=== PATIENT | female | born 1950 | race Caucasian/White ===

== ENCOUNTER 2017-01-08 09:56 | Emergency (ER) | payer MEDICARE, BC ==
[2017-01-08 10:53] VITALS: BP 126/72
--- NOTE | 2017-01-08 11:05 | UC ---
Throat Pain/Nasal [place] HPI - HPI Summary HPI Summary: 66 YEAR OLD FEMALE PRESENTS WITH COMPLAINS SORE THROAT AND CHEST CONGESTION. - History of Current Complaint Chief Complaint: UCRespiratory Stated Complaint: SORE THROAT CONGESTION Time Seen by Provider: 01/08/17 11:05 Hx Obtained From: Patient Hx Last Menstrual Period: n/a Onset/Duration: Lasting Weeks Severity: Moderate - Allergies/Home Medications Allergies/Adverse Reactions: Allergies Allergy/AdvReac Type Severity Reaction Status Date / Time environmental Allergy Congestion Uncoded 01/08/17 10:52 Home Medications: Home Medications Calcium 1,200 mg PO DAILY 01/08/17 [History Confirmed 01/08/17] Cholecalciferol [Vitamin D] 3,600 unit PO DAILY 01/08/17 [History Confirmed ] Cyclosporine 0.05% OPHTH (NF) [Restasis 0.05% OPHTH] 1 drop BOTH EYES BID [History Confirmed 01/08/17] PMH/Surg Hx/FS Hx/Imm Hx Previously Healthy: Yes - Surgical History Surgical History: Yes Surgery Procedure, Year, and Place: PARTIAL THYROIDECTOMY, HERNIA REPAIR. T&A, right breast bx, lumpectomy x2 - Family History Known Family History: Positive: Cardiac Disease, Hypertension - Social History Alcohol Use: None Substance Use Type: None Smoking Status (MU): Former Smoker Type: Cigarettes Amount Used/How Often: 1/2 PPD Length of Time of Smoking/Using Tobacco: 33 Years Have You Smoked in the Last Year: No When Did the Patient Quit Smoking/Using Tobacco: 2008 - Immunization History Most Recent Influenza Vaccination: yes 11/2016 Review of Systems Constitutional: Negative Skin: Negative Eyes: Negative ENT: Sore Throat, Nasal Discharge, Sinus Congestion, Sinus Pain/Tenderness Respiratory: Negative Cardiovascular: Negative Gastrointestinal: Negative Genitourinary: Negative Motor: Negative Neurovascular: Negative Musculoskeletal: Negative Neurological: Negative Psychological: Negative All Other Systems Reviewed And Are Negative: Yes Physical Exam Triage Information Reviewed: Yes Vital Signs: Initial Vital Signs Temp 36.7 C 01/08/17 10:47 Pulse 88 01/08/17 10:47 Resp 16 01/08/17 10:47 BP 126/72 01/08/17 10:47 Pulse Ox 99 01/08/17 10:47 Vital Signs Reviewed: Yes Eye Exam: Normal ENT: Positive: Pharyngeal erythema, Nasal congestion, Nasal drainage, Sinus tenderness Dental Exam: Normal Neck exam: Normal Neck: Positive: 1 Respiratory Exam: Normal Cardiovascular Exam: Normal Abdominal Exam: Normal Musculoskeletal Exam: Normal Neurological Exam: Normal Psychological Exam: Normal Skin Exam: Normal Throat Pain/Nasal Course/Dx - Differential Dx/Diagnosis Provider Diagnoses: SINUS CONGESTION. PHARYNGITITS. POST NASAL DRIP Discharge - Discharge Plan Condition: Stable Disposition: HOME Prescriptions: Amoxicillin/Clavulanate TAB* [Augmentin TAB 875*] 875 mg PO BID #20 tab Benzonatate [TESSALON 200 MG CAP] 200 mg PO TID PRN #30 cap PRN Reason: Cough Guaifenesin-Codeine [Cheratussin AC] 1 teasp PO BEDTIME PRN #120 ml MDD 5 ml PRN Reason: Cough LoraTADine TAB(NF) [Claritin 10 MG TAB(NF)] 10 mg PO DAILY #30 tab Patient Education Materials: Pharyngitis (ED) Referrals: Heavenly Martin MD [Primary Care Provider] -
== END 2017-01-08 11:19 | disposition home or self-care (01) ==
LOC: UCCORT 09:56
DX: R09.81 Nasal congestion (principal); J02.9 Acute pharyngitis, unspecified; R09.82 Postnasal drip
CPT/HCPCS: 87651; 99212; G0463

== ENCOUNTER 2017-12-18 09:01 | Emergency (ER) | payer MEDICARE, BC ==
[2017-12-18 09:31] VITALS: BP 124/54
--- NOTE | 2017-12-18 09:38 | UC ---
Respiratory Complaint HPI - HPI Summary HPI Summary: 67 F with numerous complaints. was seen here on 12/09 for laryngitis. States took 4 days of prednisone. States productive cough with yellow/green secretions , nasal congestion, eyes crusted bilat this morning. Symptoms continued since Wednesday. Had discharge / crust in the left eye today. Left eye with worsened symptoms. No vision changes or vision loss. no eye trauma or contact use. Now with sinus pressure above the eyes with headache as well. [ End ] - History of Current Complaint Chief Complaint: UCRespiratory Stated Complaint: BILATERAL EYE CONCERN, SINUSES Time Seen by Provider: 12/18/17 09:32 Hx Obtained From: Patient Hx Last Menstrual Period: n/a Onset/Duration: Gradual Onset Timing: Constant Pain Intensity: 8 Character: Cough: Productive Associated Signs And Symptoms: Positive: URI, Nasal Congestion, Hoarseness, Sinus Discomfort - Allergies/Home Medications Allergies/Adverse Reactions: Allergies Allergy/AdvReac Type Severity Reaction Status Date / Time environmental Allergy Congestion Uncoded 12/18/17 09:22 PMH/Surg Hx/FS Hx/Imm Hx Previously Healthy: Yes Endocrine History: Hypothyroidism, Dyslipidemia - Surgical History Surgical History: Yes Surgery Procedure, Year, and Place: PARTIAL THYROIDECTOMY, HERNIA REPAIR. T&A, right breast bx, lumpectomy x2. LEFT BREAST BX JUNE 2017- [facility] - Family History Known Family History: Positive: Cardiac Disease, Hypertension - Social History Occupation: Unemployed Alcohol Use: Weekly Alcohol Amount: ONE GLASS PER WEEK Substance Use Type: None Smoking Status (MU): Former Smoker Type: Cigarettes Amount Used/How Often: 1/2 PPD Length of Time of Smoking/Using Tobacco: 33 Years Have You Smoked in the Last Year: No When Did the Patient Quit Smoking/Using Tobacco: 2008 - Immunization History Most Recent Influenza Vaccination: yes 11/2016 Review of Systems Constitutional: Fatigue Eyes: Drainage ENT: Sore Throat, Ear Ache, Nasal Discharge, Sinus Congestion, Sinus Pain/ Tenderness Respiratory: Cough Is Patient Immunocompromised?: No All Other Systems Reviewed And Are Negative: Yes Physical Exam Triage Information Reviewed: Yes Appearance: Well-Appearing, No Pain Distress, Well-Nourished Vital Signs: Initial Vital Signs Temp 98.5 F 12/18/17 09:26 Pulse 74 12/18/17 09:26 Resp 16 12/18/17 09:26 BP 124/54 12/18/17 09:26 Pulse Ox 100 12/18/17 09:26 Vital Signs Reviewed: Yes Eye Exam: Normal Eyes: Positive: Conjunctiva Inflamed, Discharge ENT Exam: Normal ENT: Positive: Nasal congestion, Nasal drainage, TM dull, Sinus tenderness. Negative: Tonsillar swelling, Tonsillar exudate Dental Exam: Normal Neck exam: Normal Neck: Positive: 1 Respiratory Exam: Normal Cardiovascular Exam: Normal Musculoskeletal Exam: Normal Neurological Exam: Normal Psychological Exam: Normal Skin Exam: Normal UC Diagnostic Evaluation - Laboratory O2 Sat by Pulse Oximetry: 100 Respiratory Course/Dx - Course Course Of Treatment: viral vs secondary bacerial infection -- treat at this time with the Sx worsened in the past few days and advise to go to optho as her conjucitivitis could be viral and will go to her optho [facility]. aware of Se of meds and will start to see if can improve her Sx - Differential Dx/Diagnosis Differential Diagnosis/HQI/PQRI: Bronchitis, Lower Resp Infection, Sinusitis Provider Diagnoses: Sinusitis. Conjunctivitis Discharge - Sign-Out/Discharge Documenting (check all that apply): Patient Departure All imaging exams completed and their final reports reviewed: No Studies - Discharge Plan Condition: Good Disposition: HOME Prescriptions: Amoxicillin/Clavulanate TAB* [Augmentin TAB 875*] 875 mg PO BID 10 Days #20 tab Polymyx/Trimethoprim OPTH* [Polytrim OPHTH*] 1 drop BOTH EYES Q3H #1 btl Patient Education Materials: Conjunctivitis (ED), Sinusitis (ED) Referrals: Heavenly Martin MD [Primary Care Provider] - 4 Days Additional Instructions: As we discussed please call your automatic profile shaper operator for follow up if your symptoms are not much better in the next 1-2 days. - Billing Disposition and Condition Condition: GOOD Disposition: Home
== END 2017-12-18 09:58 | disposition home or self-care (01) ==
LOC: UCCORT 09:01
DX: J01.90 Acute sinusitis, unspecified (principal); H10.9 Unspecified conjunctivitis; Z87.891 Personal history of nicotine dependence
CPT/HCPCS: 99212; G0463

== ENCOUNTER 2018-07-24 11:35 | Emergency (ER) | payer MEDICARE, BC ==
--- OUTSIDE RECORDS SUMMARY | 2018-07-24 12:27 | XMS REPORT | Continuity of Care Document ---
:1950 External Reference #:[id number] Author Name Heavenly Martin MD Address [address] [place] [address] Care Team Providers Name Role Phone Heavenly Martin MD Care Team Information Parts Specialist Unavailable Payers Date Identification Numbers Payment Provider Subscriber Effective: 2014 Policy Number: [id number] Medicare Part B [employer] Name: [employer] [address] PayID: [id number] [place] [id number] Effective: 2011 Policy Number: [id number] [employer] PayID: [id number] [address] [address] [place] [address] Problems Active Problems Provider Date Disorder of skin pigmentation Heavenly Martin MD Onset: 12/21/2013 Allergic rhinitis Heavenly Martin MD Onset: 01/20/2013 Vitamin D deficiency Heavenly Martin MD Onset: 01/20/2013 Benign essential hypertension Heavenly Martin MD Onset: 01/20/2013 Hypothyroidism Orlando Alexander MD Onset: 10/09/2004 Mixed hyperlipidemia Orlando Alexander MD Onset: 10/09/2004 Basal cell carcinoma of neck Heavenly Martin MD Onset: 06/07/2014 Malignant neoplasm of female breast Heavenly Martin MD Onset: 01/14/2016 Hypokalemia Heavenly Martin MD Onset: 06/15/2016 Chronic kidney disease stage 3 Heavenly Martin MD Onset: 01/13/2018 History of polyp of colon Heavenly Martin MD Onset: 07/14/2018 Cobalamin deficiency Heavenly Martin MD Onset: 07/14/2018 Family History Date Family Member(s) Observation Comments General Hearing Loss Grandchildren Father Osteoarthritis postop knee replacement.age 80/. ?stroke. Father Cancer, Prostate Mother Osteoporosis compression Fracture age 83 Alive/Staci Ziegler Children 1 Siblings 2 Onset: (2005) First Brother 50 Alive Onset: (age 50 First Sister Cancer, Breast alive /2005, age 58. 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 [employer] Work Status 07/2004 Not Currently Working Retired Tobacco Use Start: 02/15/69 Former Cigarette Smoker End: Unknown Cigarette Use Quit - Age 58 Cigarette Use Pack Years - 40 Tobacco Use Start: Unknown End: Former Cigarette Smoker Unknown 1 Pack Daily Smoking Status Reviewed: 01/13/18 Former Cigarette Smoker ETOH Use Currently consumes 1 wine per week. alcohol Tobacco Use Start: Unknown End: Patient is a former Unknown smoker Exercise Exercises regularly Walks regularly. 5 Type/Frequency days per week/ praveen luna x 40 minutes. Allergies, Adverse Reactions, Alerts Description No Known Drug Allergies Medications Active Medications SIG Qnty Indications Ordering Date Provider Levothyroxine Sodium 1 by mouth every 90tabs E03.9 Heavenly Martin, 2018 day 75mcg Tablets Vitamin B12 1/2 by mouth qod D51.9 Heavenly Martin, 07/16/2017 1000mcg otc MD Tablets ER Potassium Chloride ER take 1 tablet 270tabs E87.6 Heavenly Martin, 2016 three times daily 10Meq Tablets ER Desloratadine 1 tab by mouth 90tabs J30.89 Heavenly Martin, 06/17/2016 5mg daily as needed Tablets nasal congestion J30.2 Vitamin D3 High 3 by mouth every E55.9 Heavenly Martin MD 06/15/2016 Potency day 1000Unit Capsules Calcium 1200 1 by mouth every Heavenly Martin MD 06/15/2016 day OTC [id number] Chewtabs Hydroquinone apply daily as 28.400gm L81.1 Heavenly Martin MD 07/05/2013 4% Cream needed Simvastatin take 1 tablet 90tabs E78.2 Heavenly Martin MD 07/05/2013 40mg daily Tablets Fluocinonide-E apply bid prn 60gm Heavenly Martin MD 12/16/2006 0.05% Cream Atenolol take 1 tablet 90tabs I10 Heavenly Martin MD 25mg Tablets daily Anastrozole 1 by mouth every C50.811 Unknown 1mg Tablets day Fluticasone 2 sprays both 48gm J30.2 Heavenly Martin MD Propionate nostrils every 50mcg/Act day Suspension Restasis 1 gtt ou bid Fergerson, 0.05% Emulsion Rea History Medications Desloratadine 1 by mouth every 90tabs Heavenly Martin, 06/15/2016 - 5mg day 06/17/2016 Tablets Dispers Flonase Allergy 2 spray each 3Units Heavenly Martin, 11/22/2014 - Relief nostril daily 2 06/06/2015 50mcg/Act day express Suspension delivery please Docusate Sodium 3 drops in the 473ml H61.23 Heavenly Martin, 06/07/2014 - affected ear 01/12/2018 50mg/5ML Liquid canal daily until resolved, then as needed Levothyroxine Sodium take 1 tablet 90tabs E03.9 Heavenly Martin, 2012 - daily 07/14/2018 88mcg Tablets Flonase 2 spray each 3Units Heavenly Martin, 02/01/2012 - 50mcg/Act nostril daily 2 11/22/2014 Suspension day express delivery please Levothyroxine Sodium 1 by mouth every Unknown - day 06/07/2014 25mcg Tablets Vitamin D 1 by mouth every Unknown - 1000Unit day 06/15/2016 Tablets Immunizations CPT Code Status Date Vaccine Reaction Lot # [id number] Given 01/07/2018 Shingrix (Shingles) Zoster Vaccine HZV, Recombinant, Subunit, Adj 00169 Given 11/08/2017 Fluzone Highdose Age 65 And Over Preservative & Antibiotic Free 99339 Given 06/10/2017 Shingrix (Shingles) Zoster Vaccine HZV, Recombinant, Subunit, Adj 11785 Given 10/05/2016 Fluzone Highdose Age 65 And Over Preservative & Antibiotic Free Q2038 Given 11/18/2015 Fluzone Trivalent Immunization Given At Pharmacy [facility] 20833 Given 11/18/2015 Pneumococcal 23 Immunization [facility] Adult Or Immunosuppressed Patient 01865 Given 11/15/2014 Prevnar 13 Pneumococal [facility] Conjugate Vaccine 39914 Given 11/15/2014 Afluria Or Fluvirin Flu Vac [facility] Intramuscular 56214 Given 10/30/2013 Afluria Or Fluvirin Flu Vac Intramuscular 72552 Given 01/20/2013 Tdap (Adacel) Ages 7 And Above Only 18884 Given 10/20/2012 Afluria Or Fluvirin Flu Vac Intramuscular 23636 Given 11/06/2011 Zoster (Zostavax) 20396 Given 10/15/2011 Afluria Or Fluvirin Flu Vac VIS DATE 08/17/11 Intramuscular 99072 Given 09/02/2011 Zoster (Zostavax) 43392 Given 12/17/2010 Afluria Or Fluvirin Flu Vac VIS DATE 09/09/10 Intramuscular 22323 Given 01/14/2010 Afluria Or Fluvirin Flu Vac Intramuscular 85643 Given 12/19/2007 Afluria Or Fluvirin Flu Vac Intramuscular Vital Signs Date Vital Result Comment 07/14/2018 7:57am Weight 154.00 lb Heart Rate 76 /min BP Systolic 120 mmHg BP Diastolic 80 mmHg Respiratory Rate 18 /min Height 64.5 inches 5'4.50" BMI (Body Mass Index) 26.0 kg/m2 01/13/2018 10:52am Weight 151.00 lb Heart Rate 70 /min BP Systolic 132 mmHg BP Diastolic 76 mmHg Respiratory Rate 18 /min Height 64 inches 5'4" O2 % BldC Oximetry 98 % Ra BMI (Body Mass Index) 25.9 kg/m2 07/16/2017 2:36pm Weight 150.00 lb Heart Rate 18 /min BP Systolic 130 mmHg BP Diastolic 70 mmHg Respiratory Rate 18 /min 01/12/2017 8:25am Weight 149.00 lb Heart Rate 70 /min BP Systolic 130 mmHg BP Diastolic 78 mmHg Respiratory Rate 18 /min Height 64 inches 5'4" BMI (Body Mass Index) 25.6 kg/m2 09/24/2016 9:45am Weight 148.00 lb Heart Rate 70 /min BP Systolic 120 mmHg BP Diastolic 70 mmHg Respiratory Rate 14 /min Height 64.5 inches 5'4.50" Done On 06/15/16 BMI (Body Mass Index) 25.0 kg/m2 06/15/2016 10:09am Weight 148.00 lb Heart Rate 76 /min BP Systolic 122 mmHg BP Diastolic 70 mmHg Respiratory Rate 18 /min Height 64.5 inches 5'4.50" Done On 06/15/16 BMI (Body Mass Index) 25.0 kg/m2 12/30/2015 2:19pm Weight 156.00 lb Heart Rate 76 /min BP Systolic 130 mmHg BP Diastolic 70 mmHg Respiratory Rate 18 /min Height 64.5 inches 5'4.50" Done On 05/30/15 BMI (Body Mass Index) 26.4 kg/m2 05/30/2015 2:15pm Weight 156.00 lb Heart Rate 76 /min BP Systolic 132 mmHg BP Diastolic 72 mmHg Respiratory Rate 18 /min Height 64.5 inches 5'4.50" Done On 05/30/15 BMI (Body Mass Index) 26.4 kg/m2 05/30/2015 1:32pm Height 64.5 inches 5'4.50" Done On 05/30/15 11/22/2014 9:43am Weight 157.00 lb Heart Rate 72 /min BP Systolic 130 mmHg BP Diastolic 82 mmHg Respiratory Rate 18 /min Height 64.5 inches 5'4.50" Done On 07/05/13 BMI (Body Mass Index) 26.5 kg/m2 06/07/2014 9:03am Weight 155.00 lb Heart Rate 72 /min BP Systolic 140 mmHg BP Diastolic 80 mmHg Respiratory Rate 18 /min Height 64.5 inches 5'4.50" Done On 07/05/13 BMI (Body Mass Index) 26.2 kg/m2 12/21/2013 9:10am Weight 154.00 lb Heart Rate 80 /min BP Systolic 122 mmHg BP Diastolic 70 mmHg Respiratory Rate 18 /min Height 64.5 inches 5'4.50" Done On 07/05/13 10/26/2013 10:52am Body Temperature 98.2 F Weight 154.00 lb Heart Rate 72 /min BP Systolic 134 mmHg BP Diastolic 72 mmHg Respiratory Rate 18 /min Height 64.5 inches 5'4.50" Done On 07/05/13 07/05/2013 9:06am Weight 154.00 lb Heart Rate 74 /min BP Systolic 102 mmHg BP Diastolic 62 mmHg Respiratory Rate 18 /min Height 64.5 inches Done On 07/05/13 Results Test Date Facility Test Result H/L Range Note Laboratory test finding 07/08/2018 [facility] B12 1101 pg/mL High 180-914 1 Basic (BMP) 07/08/2018 [facility] Sodium 146 mmol/L 135-146 2 Potassium 3.4 mmol/L Low 3.5-5.2 Chloride# 107 mmol/L 97-110 3 Carbon Dioxide 28 mmol/L 24-34 Glucose 100 mg/dL 70-105 BUN 14 mg/dL 6-26 Creatinine 1.1 mg/dL 0.5-1.4 Calcium 9.7 mg/dL 8.5-10.5 4 Female Egfr 51 Low >60 5 Male Egfr 68 >60 6 Anion Gap 11 mmol/L 5-15 7 Laboratory test finding 07/08/2018 [facility] Vitamin D 25 Hydroxy 56 ng/mL 30-100 8 CBC with Auto Diff-fcmg 07/08/2018 [facility] WBC 5.2 K/uL 4.1-11.0 RBC 3.97 M/uL Low 4.00-5.40 Hemoglobin 12.4 gm/dL 12.0-16.0 Hematocrit 36.1 % 36.0-47.0 MCV 90.9 fL 80.0-97.0 MCH 31.3 pg 27.0-32.0 MCHC 34.5 g/dL 32.0-36.0 RDW 13.1 % 11.5-14.5 PLT Count 239 K/ul 140-400 MPV 7.2 FL 7.1-10.7 Neutrophil 66.5 % 35.0-75.0 Lymphocyte 22.9 % 16.0-52.0 Monocyte 7.7 % 2.0-10.0 Eosinophil 2.0 % 0.0-5.0 Basophil 0.9 % 0.0-4.0 Abs Neutrophils 3.4 K/uL 2.1-8.0 Abs Lymphocytes 1.2 K/uL 0.8-5.5 Abs Monocytes 0.4 K/uL 0.1-1.0 Abs Eosinophils 0.1 K/uL 0.0-0.5 Abs Basophils 0.0 K/uL 0.0-0.3 Lipid Treatment 07/08/2018 [facility] Cholesterol 204 mg/dL High 50-199 Triglycerides 130 mg/dL 30-200 HDL 64 mg/dL 35-85 9 Chol/ HDL Ratio 3.2 ratio Low 3.7-5.6 VLDL 26 mg/dL 2-29 LDL (Calc) 114 mg/dL High 20-99 10 Alt 17 U/L 3-42 Ast 18 U/L 8-42 Laboratory test finding 07/08/2018 [facility] TSH 0.22 uIU/mL Low 0.35-4.94 Basic (BMP) 01/05/2018 [facility] Sodium 146 mmol/L 135-146 11, 12 Potassium 3.5 mmol/L 3.5-5.2 Chloride# 107 mmol/L 97-110 13 Carbon Dioxide 27 mmol/L 24-34 Glucose 105 mg/dL 70-105 BUN 16 mg/dL 6-26 Creatinine 1.1 mg/dL 0.5-1.4 Calcium 9.8 mg/dL 8.5-10.2 Non Norma Egfr 50 Low >60 14 Norma Egfr 61 >60 15 Anion Gap 12 mmol/L 5-15 16 Laboratory test finding 01/05/2018 [facility] Vitamin B12 781 pg/mL 180- 914 Laboratory test finding 01/05/2018 [facility] Vitamin D 25 49 ng/mL 30-100 17 Hydroxy CBC with Auto Diff-fcmg 01/05/2018 [facility] WBC 5.2 K/uL 4.1-11.0 RBC 4.12 M/uL 4.00-5.40 Hemoglobin 12.6 gm/dL 12.0-16.0 Hematocrit 36.2 % 36.0-47.0 MCV 87.9 fL 80.0-97.0 MCH 30.7 pg 27.0-32.0 MCHC 34.9 g/dL 32.0-36.0 RDW 13.4 % 11.5-14.5 PLT Count 285 K/ul 140-400 MPV 7.2 FL 7.1-10.7 Neutrophil 62.0 % 35.0-75.0 Lymphocyte 24.5 % 16.0-52.0 Monocyte 9.6 % 2.0-10.0 Eosinophil 2.8 % 0.0-5.0 Basophil 1.1 % 0.0-4.0 Abs Neutrophils 3.2 K/uL 2.1-8.0 Abs Lymphocytes 1.3 K/uL 0.8-5.5 Abs Monocytes 0.5 K/uL 0.1-1.0 Abs Eosinophils 0.1 K/uL 0.0-0.5 Abs Basophils 0.1 K/uL 0.0-0.3 Laboratory test finding 01/05/2018 [facility] TSH 0.48 uIU/mL 0.35-4.94 Lipid Treatment 01/05/2018 [facility] Cholesterol 226 mg/dL High 50-199 Triglycerides 153 mg/dL 30-200 HDL 63 mg/dL 35-85 18 Chol/ HDL Ratio 3.6 ratio Low 3.7-5.6 VLDL 31 mg/dL High 2-29 LDL (Calc) 133 mg/dL High 20-99 19 Alt 18 U/L 3-42 Ast 20 U/L 8-42 Laboratory test 07/07/2017 [facility] Vitamin D 25 39 ng/mL 30-100 20, 21 finding Hydroxy CBC With Auto Diff 07/07/2017 [facility] WBC 7.7 K/uL 4.1-11.0 RBC 4.27 M/uL 4.00-5.40 Hemoglobin 13.2 gm/dL 12.0-16.0 Hematocrit 38.0 % 36.0-47.0 MCV 88.9 fL 80.0-97.0 MCH 30.9 pg 27.0-32.0 MCHC 34.7 g/dL 32.0-36.0 RDW 13.4 % 11.5-14.5 PLT Count 292 K/ul 140-400 MPV 7.3 FL 7.1-10.7 Neutrophil 69.2 % 35.0-75.0 Lymphocyte 19.9 % 16.0-52.0 Monocyte 7.9 % 2.0-10.0 Eosinophil 2.1 % 0.0-5.0 Basophil 0.9 % 0.0-4.0 Abs Neutrophils 5.3 K/uL 2.1-8.0 Abs Lymphocytes 1.5 K/uL 0.8-5.5 Abs Monocytes 0.6 K/uL 0.1-1.0 Abs Eosinophils 0.2 K/uL 0.0-0.5 Abs Basophils 0.1 K/uL 0.0-0.3 Comprehensive Met Panel-FCMG 07/07/2017 [facility] Sodium 141 mmol/L 135- 146 22 Potassium 3.2 mmol/L Low 3.5-5.2 Chloride# 103 mmol/L 97-110 23 Carbon Dioxide 27 mmol/L 24-34 Glucose 114 mg/dL High 70-105 BUN 16 mg/dL 6-26 Creatinine 1.2 mg/dL 0.5-1.4 Calcium 10.0 mg/dL 8.5-10.2 Total Protein 6.6 g/dL 6.0-8.0 Albumin 4.5 g/dL 3.6-4.9 Globulin 2.1 g/dL 2.0-3.5 A/G Ratio 2.1 Ratio 1.0-2.2 Total Bilirubin 0.4 mg/dL 0.1-1.3 Alkaline Phosphatase 42 U/L 24-140 Alt 22 U/L 3-42 Ast 23 U/L 8-42 Norma Egfr 54 Low >60 24 Non Norma Egfr 44 Low >60 25 Anion Gap 11 mmol/L 5-15 26 Laboratory test finding 07/07/2017 [facility] TSH 0.81 uIU/mL 0.35-4.94 Lipid 07/07/2017 [facility] Cholesterol 252 mg/dL High 50-199 Triglycerides 158 mg/dL 30-200 HDL 73 mg/dL 35-85 27 Chol/ HDL Ratio 3.5 ratio Low 3.7-5.6 VLDL 32 mg/dL High 2-29 LDL (Calc) 148 mg/dL High 20-99 28 Laboratory test 05/20/2017 [facility] [place] 27.29 9.1 U/mL 0.0-38.6 29, 30 finding (315)- - CBS W/Automated 05/20/2017 [facility] White Blood 6.1 K/ uL N 3.1-10.7 Diff (315)- - Count Red Blood Count 3.95 M/uL N 3.90-5.40 Hemoglobin 12.1 gm/dL N 11.6-15.8 Hematocrit 36.2 % N 36.0-46.1 Mean Cell Volume 91.6 fl N 80.9-99.0 Mean Corpuscular HGB 30.6 pg N 25.9-32.7 Mean Corpuscular HGB Conc 33.4 g/dL N 30.8-34.3 Platelet Count 280 K/uL N 155-360 Red Cell Distri Width SD 42.5 fl N 3-47 Red Cell Distri Width %CV 13.2 % N 11.7-14.4 Mean Platelet Volume 9.4 fL N 8.9-12.4 Neut% 69.3 % N 40.4-72.8 Lymph % 19.3 % Low 20.0-42.0 Karnes % 8.2 % N 4.3-13.2 Eo% 2.5 % N 0.0-6.6 Bas% 0.7 % N 0.0-1.1 Neut# 4.25 K/uL N 1.8-7.0 Lymph # 1.18 K/uL N 1.0-4.0 Karnes # 0.50 K/uL N 0.3-0.9 Eos # 0.15 K/uL N 0.0-0.5 Baso # 0.04 K/uL N 0.0-0.1 Iron-Tibc-%Sat 05/20/2017 [facility] Serum Iron 87 g/ dL N 50-170 (315)- - Total Iron Binding Capacity 318 g/dL N 250-450 Transferrin %Saturation 27 % N 12-57 Vitamin B12 And 05/20/2017 [facility] Vitamin B12 239 pg/ mL N 193-986 Folate (315)- - Folic Acid 7.0 ng/mL N 3.1-17.5 Comprehensive Metabolic 05/20/2017 [facility] Glucose 88 mg/dL N 74-106 Panel (315)- - BUN 14 mg/dL N 7-18 Creatinine 1.1 mg/dL N 0.6-1.3 Glom Filtration Rate, Estimate 53 mL/min >60 If >60 mL/min >60 31 BUN/Creat 12.7 ratio Sodium 142 mmol/L N 136-145 Potassium 3.2 mmol/L Low 3.5-5.1 Chloride 109 mmol/L High 98-107 Carbon Dioxide 27 mmol/L N 21-32 Anion Gap 6 mEq/L Low 8-16 Calcium 8.9 mg/dL N 8.5-10.1 Total Protein 6.8 g/dL N 6.4-8.2 Albumin 3.6 g/dL N 3.4-5.0 Globulin 3.2 g/dL N 1.9-4.3 Alb/Glob 1.1 ratio Bilirubin,Total 0.3 mg/dL N 0.2-1.0 Sgot/Ast 20 U/L N 15-37 SGPT/Alt 17 U/L N 12-78 Alkaline Phosphatase 46 U/L N 45-117 Laboratory test finding 01/12/2017 [facility] Pap Smear Thin SEE NOTE 32 , 33 Prep Laboratory test finding 01/05/2017 [facility] Vit D25oh 51 ng/mL 31-100 34 TSH 0.33 uIU/mL Low 0.35-4.94 Lipid Treatment 01/05/2017 [facility] Cholesterol 212 mg/dL High 50-199 Triglycerides 137 mg/dL 30-200 HDL 60 mg/dL 35-85 35 Chol/ HDL Ratio 3.6 ratio Low 3.7-5.6 VLDL 27 mg/dL 2-29 LDL (Calc) 125 mg/dL High 20-99 36 Alt 15 U/L 3-42 Ast 18 U/L 8-42 Basic (BMP) 01/05/2017 [facility] Sodium 144 mmol/L 135-146 37 Potassium 3.6 mmol/L 3.5-5.2 Chloride# 107 mmol/L 97-110 38 Carbon Dioxide 27 mmol/L 24-34 Glucose 93 mg/dL 70-105 Creatinine 1.0 mg/dL 0.5-1.4 Calcium 9.6 mg/dL 8.5-10.2 Non Norma Egfr 56 Low >60 39 Norma Egfr >60 >60 40 Anion Gap 10 mmol/L 7-16 41 BUN 13 mg/dL 6-26 CBC With Auto Diff 01/05/2017 [facility] WBC 6.3 K/uL 4.1-11.0 RBC 4.01 M/uL 4.00-5.40 Hemoglobin 12.3 gm/dL 12.0-16.0 Hematocrit 36.3 % 36.0-47.0 MCV 90.5 fL 80.0-97.0 MCH 30.7 pg 27.0-32.0 MCHC 34.0 g/dL 32.0-36.0 RDW 14.0 % 11.5-14.5 PLT Count 286 K/ul 140-400 MPV 7.4 FL 7.1-10.7 Neutrophil 73.4 % 35.0-75.0 Lymphocyte 16.2 % 16.0-52.0 Monocyte 7.1 % 2.0-10.0 Eosinophil 2.2 % 0.0-5.0 Basophil 1.1 % 0.0-4.0 Abs Neutrophils 4.6 K/uL 2.1-8.0 Abs Lymphocytes 1.0 K/uL 0.8-5.5 Abs Monocytes 0.4 K/uL 0.1-1.0 Abs Eosinophils 0.1 K/uL 0.0-0.5 Abs Basophils 0.1 K/uL 0.0-0.3 Laboratory test 11/17/2016 [facility] [place] 27.29 17.1 U/mL 0.0-38.6 42, 43 finding (315)- - CBS W/Automated 11/17/2016 [facility] White Blood 7.3 K/ uL N 3.1-10.7 Diff (315)- - Count Red Blood Count 3.98 M/uL N 3.90-5.40 Hemoglobin 12.4 gm/dL N 11.6-15.8 Hematocrit 36.8 % N 36.0-46.1 Mean Cell Volume 92.5 fl N 80.9-99.0 Mean Corpuscular HGB 31.2 pg N 25.9-32.7 Mean Corpuscular HGB Conc 33.7 g/dL N 30.8-34.3 Platelet Count 286 K/uL N 150-400 Red Cell Distri Width SD 42.9 fl N 3-47 Red Cell Distri Width %CV 13.0 % N 11.7-14.4 Mean Platelet Volume 9.6 fL N 8.9-12.4 Neut% 68.1 % N 40.4-72.8 Lymph % 18.4 % Low 20.0-42.0 Karnes % 8.9 % N 4.3-13.2 Eo% 3.8 % N 0.0-6.6 Bas% 0.8 % N 0.0-1.1 Neut# 4.99 K/uL N 1.8-7.0 Lymph # 1.35 K/uL N 1.0-4.0 Karnes # 0.65 K/uL N 0.3-0.9 Eos # 0.28 K/uL N 0.0-0.5 Baso # 0.06 K/uL N 0.0-0.1 Iron-Tibc-%Sat 11/17/2016 [facility] Serum Iron 78 g/ dL N 50-170 (315)- - Total Iron Binding Capacity 307 g/dL N 250-450 Transferrin %Saturation 25 % N 12-57 Vitamin B12 And 11/17/2016 [facility] Vitamin B12 274 pg/ mL N 193-986 Folate (315)- - Folic Acid 5.6 ng/mL N 3.1-17.5 Comprehensive Metabolic 11/17/2016 [facility] Glucose 87 mg/dL N 74-106 Panel (315)- - BUN 15 mg/dL N 7-18 Creatinine 1.1 mg/dL N 0.6-1.3 Glom Filtration Rate, Estimate 53 mL/min >60 If >60 mL/min >60 44 BUN/Creat 13.6 ratio Sodium 140 mmol/L N 136-145 Potassium 3.3 mmol/L Low 3.5-5.1 Chloride 108 mmol/L High 98-107 Carbon Dioxide 28 mmol/L N 21-32 Anion Gap 4 mEq/L Low 8-16 Calcium 8.8 mg/dL N 8.5-10.1 Total Protein 6.9 g/dL N 6.4-8.2 Albumin 3.7 g/dL N 3.4-5.0 Globulin 3.2 g/dL N 1.9-4.3 Alb/Glob 1.2 ratio Bilirubin,Total 0.3 mg/dL N 0.2-1.0 Sgot/Ast 17 U/L N 15-37 SGPT/Alt 20 U/L N 12-78 Alkaline Phosphatase 50 U/L N 45-117 Laboratory test 09/17/2016 [facility] Hepatitis C Virus NONREACTIVE Nonreactive 45 finding Antibody Basic (BMP) 09/17/2016 [facility] Sodium 140 mmol/L 135-146 46 Potassium 3.5 mmol/L 3.5-5.2 Chloride# 105 mmol/L 97-110 47 Carbon Dioxide 28 mmol/L 24-34 Glucose 74 mg/dL 70-105 BUN 14 mg/dL 6-26 Creatinine 1.2 mg/dL 0.5-1.4 Calcium 9.2 mg/dL 8.5-10.2 Non Norma Egfr 45 Low >60 48 Norma Egfr 55 Low >60 49 Anion Gap 7 mmol/L 7-16 50 Laboratory test 09/17/2016 [facility] Vit D,25 Hydroxy 42 ng/mL 31-100 finding Laboratory test 06/08/2016 [facility] TSH 1.23 uIU/mL 0.35-4.94 51 finding Lipid Treatment 06/08/2016 [facility] Cholesterol 203 mg/dL High 50-199 Triglycerides 136 mg/dL 30-200 HDL 63 mg/dL 35-85 52 Chol/ HDL Ratio 3.2 ratio Low 3.7-5.6 VLDL 27 mg/dL 2-29 LDL (Calc) 113 mg/dL High 20-99 53 Alt 14 U/L 3-42 Ast 18 U/L 8-42 Laboratory test 05/18/2016 [facility] [place] 27.29 12.2 U/mL 0.0-38.6 54, 55 finding (315)- - CBS W/Automated 05/18/2016 [facility] White Blood 5.7 K/ uL N 3.1-10.7 Diff (315)- - Count Red Blood Count 3.99 M/uL N 3.90-5.40 Hemoglobin 12.2 gm/dL N 11.6-15.8 Hematocrit 36.2 % N 36.0-46.1 Mean Cell Volume 90.7 fl N 80.9-99.0 Mean Corpuscular HGB 30.6 pg N 25.9-32.7 Mean Corpuscular HGB Conc 33.7 g/dL N 30.8-34.3 Platelet Count 267 K/uL N 150-400 Red Cell Distri Width SD 42.9 fl N 3-47 Red Cell Distri Width %CV 13.4 % N 11.7-14.4 Mean Platelet Volume 9.7 fL N 8.9-12.4 Neut% 74.0 % High 40.4-72.8 Lymph % 15.3 % Low 20.0-42.0 Karnes % 7.7 % N 4.3-13.2 Eo% 2.3 % N 0.0-6.6 Bas% 0.7 % N 0.0-1.1 Neut# 4.21 K/uL N 1.8-7.0 Lymph # 0.87 K/uL Low 1.0-4.0 Karnes # 0.44 K/uL N 0.3-0.9 Eos # 0.13 K/uL N 0.0-0.5 Baso # 0.04 K/uL N 0.0-0.1 Comprehensive Metabolic 05/18/2016 [facility] Glucose 81 mg/dL N 74-106 Panel (315)- - BUN 14 mg/dL N 7-18 Creatinine 1.0 mg/dL N 0.6-1.3 Glom Filtration Rate, Estimate 59 mL/min >60 If >60 mL/min >60 56 BUN/Creat 14.0 ratio Sodium 145 mmol/L N 136-145 Potassium 3.4 mmol/L Low 3.5-5.1 Chloride 110 mmol/L High 98-107 Carbon Dioxide 24 mmol/L N 21-32 Anion Gap 11 mEq/L N 8-16 Calcium 9.2 mg/dL N 8.5-10.1 Total Protein 6.7 g/dL N 6.4-8.2 Albumin 3.9 g/dL N 3.4-5.0 Globulin 2.8 g/dL N 1.9-4.3 Alb/Glob 1.4 ratio Bilirubin,Total 0.3 mg/dL N 0.2-1.0 Sgot/Ast 19 U/L N 15-37 SGPT/Alt 22 U/L N 12-78 Alkaline Phosphatase 47 U/L N 45-117 Lipid Treatment 11/27/2015 [facility] Cholesterol 206 mg/dL High 50-199 57 Triglycerides 159 mg/dL 30-200 HDL 52 mg/dL 35-85 58 Chol/ HDL Ratio 4.0 ratio 3.7-5.6 VLDL 32 mg/dL High 2-29 LDL (Calc) 122 mg/dL High 20-99 59 Alt 12 U/L 3-42 Ast 15 U/L 8-42 Laboratory test finding 11/27/2015 [facility] TSH 0.95 uIU/mL 0.35-4.94 Laboratory test finding 05/21/2015 [facility] TSH 0.26 uIU/mL Low 0.35-4.94 60 CBC With Auto Diff 05/21/2015 [facility] WBC 6.5 K/uL 4.1-11.0 RBC 3.99 M/uL Low 4.00-5.40 Hemoglobin 12.0 gm/dL 12.0-16.0 Hematocrit 36.1 % 36.0-47.0 MCV 90.5 fL 80.0-97.0 MCH 30.0 pg 27.0-32.0 MCHC 33.1 g/dL 32.0-36.0 RDW 13.4 % 11.5-14.5 PLT Count 268 K/ul 140-400 Neutrophil 65.3 % 35.0-75.0 Lymphocyte 24.5 % 16.0-52.0 Monocyte 7.4 % 2.0-10.0 Eosinophil 2.0 % 0.0-5.0 Basophil 0.8 % 0.0-4.0 Abs Neutrophils 4.2 K/uL 2.1-8.0 Abs Lymphocytes 1.6 K/uL 0.8-5.5 Abs Monocytes 0.5 K/uL 0.1-1.0 Abs Eosinophils 0.1 K/uL 0.0-0.5 Abs Basophils 0.0 K/uL 0.0-0.3 Lipid 05/21/2015 [facility] Cholesterol 195 mg/dL 50-199 Triglycerides 112 mg/dL 30-200 HDL 57 mg/dL 35-85 61 Chol/ HDL Ratio 3.4 ratio Low 3.7-5.6 VLDL 22 mg/dL 2-29 LDL (Calc) 116 mg/dL High 20-99 62 Basic (BMP) 05/21/2015 [facility] Sodium 140 mmol/L 134-142 Potassium 3.4 mmol/L Low 3.5-5.2 Chloride 108 mmol/L 97-109 Carbon Dioxide 25 mmol/L 24-34 Glucose 100 mg/dL 70-105 BUN 14 mg/dL 6- Creatinine 1.1 mg/dL 0.5-1.4 Calcium 9.1 mg/dL 8.5-10.2 Anion Gap 10 mmol/L 6-14 Non Norma Egfr 52 Low >60 63 Norma Egfr >60 >60 64 Lipid Treatment 11/15/2014 [facility] Cholesterol 210 mg/dL High 50-199 65 Triglycerides 147 mg/dL 30-200 HDL 56 mg/dL 35-85 66 Chol/ HDL Ratio 3.8 ratio 3.7-5.6 VLDL 29 mg/dL 2-29 LDL (Calc) 125 mg/dL High 20-99 67 Alt 15 U/L 3-42 Ast 19 U/L 8-42 Laboratory test finding 11/15/2014 [facility] TSH 0.58 uIU/mL 0.35-4.94 Lipid Treatment 05/31/2014 [facility] Cholesterol 202 mg/dL High 50-199 Triglycerides 128 mg/dL 30-200 HDL 64 mg/dL 35-85 68 Chol/ HDL Ratio 3.2 ratio Low 3.7-5.6 VLDL 26 mg/dL 2-29 LDL (Calc) 112 mg/dL High 20-99 69 Alt 11 U/L 3-42 Ast 16 U/L 8-42 Laboratory test finding 05/31/2014 [facility] TSH 0.57 uIU/mL 0.34-5.60 Basic (BMP) 05/31/2014 [facility] Sodium 141 mmol/L 134-142 Potassium 3.9 mmol/L 3.5-5.2 Chloride 107 mmol/L 97-109 Carbon Dioxide 26 mmol/L 24-34 Glucose 100 mg/dL 70-105 BUN 12 mg/dL 6-26 Creatinine 1.1 mg/dL 0.5-1.4 Calcium 9.3 mg/dL 8.5-10.2 Anion Gap 12 mmol/L 6-14 Non Norma Egfr 52 Low >60 70 Norma Egfr >60 >60 71 CBC With Auto Diff 05/31/2014 [facility] WBC 6.1 K/uL 4.1-11.0 RBC 4.07 M/uL 4.00-5.40 Hemoglobin 12.6 gm/dL 12.0-16.0 Hematocrit 37.3 % 36.0-47.0 MCV 91.6 fL 80.0-97.0 MCH 31.0 pg 27.0-32.0 MCHC 33.8 g/dL 32.0-36.0 RDW 14.0 % 11.5-14.5 PLT Count 262 K/ul 140-400 Neutrophil 62.4 % 35.0-75.0 Lymphocyte 27.1 % 16.0-52.0 Monocyte 6.8 % 2.0-10.0 Eosinophil 2.3 % 0.0-5.0 Basophil 1.4 % 0.0-4.0 Abs Neutrophils 3.8 K/uL 2.1-8.0 Abs Lymphocytes 1.7 K/uL 0.8-5.5 Abmon 0.4 K/uL 0.1-1.0 Abs Eosinophils 0.1 K/uL 0.0-0.5 Abs Basophils 0.1 K/uL 0.0-0.3 Laboratory test 05/31/2014 [facility] Vit D,25 Hydroxy 93 ng/mL 31-100 finding Laboratory test 12/28/2013 [facility] Import Polyp Colon See Note 72 finding And/Or Rectum Laboratory test 12/13/2013 [facility] Import Alt 15.0 U/L 9.0-52.0 finding Ast 20.0 U/L 14.0-36.0 FT4 1.15 ng/dL 0.75-1.54 TSH 1.00 uIU/ml 0.50-6.00 Lipid Panel 12/13/2013 [facility]N/[employer] [place] Import Chol/HDL Ratio 3.1 ratio Cholesterol 195.0 mg/dL 50.0-199.0 HDL 63.0 mg/dL 29.0-86.0 LDL, Calculated 112.0 mg/dL 20.0-129.0 Triglycerides 100.0 mg/dL 30.0-249.0 vLDL 20.0 ng/dL Laboratory test 10/26/2013 [facility] [place] Import Culture Urine See Note 73 finding Laboratory test 06/30/2013 [facility] [place] Import Alt 16.0 U/L 9.0-52.0 finding Ast 20.0 U/L 14.0-36.0 FT4 1.32 ng/dL 0.75-1.54 TSH 0.54 uIU/ml 0.50-6.00 Lipid Panel 06/30/2013 [facility] [employer] Chol/HDL Ratio 3.0 ratio Cholesterol 197.0 mg/dL 50.0-199.0 HDL 65.0 mg/dL 29.0-86.0 LDL, Calculated 103.4 mg/dL 20.0-129.0 Triglycerides 143.0 mg/dL 30.0-249.0 vLDL 28.6 ng/dL Laboratory test 06/30/2013 [facility] [facility] Triiodothyronine,Total 92 ng/dL 71-180 74 finding Laboratory test 01/20/2013 [facility] [facility] % Baso. 1.2 % 0.0-2.0 finding % Eos. 3.0 % 0.0-4.0 % Lymph 23 % 20-44 % Karnes 7.3 % 2.0-10.0 % Mary Ann 66 % 50-70 Absolute Baso. 0.1 K/ul 0.0-0.3 Absolute Eos. 0.2 K/ul 0.0-0.5 Absolute Lymph. 1.6 K/ul 0.8-4.8 Absolute Karnes. 0.5 K/ul 0.1-1.0 Absolute Mary Ann. 4.60 K/ul 2.05-7.63 Alt 20.0 U/L 9.0-52.0 Ast 24.0 U/L 14.0-36.0 BUN 12.0 mg/dL 7.0-18.0 BUN/Creat Ratio 12.0 ratio 12.0-20.0 Calcium 10.0 mg/dL 8.7-10.5 Chloride 107.0 mmol/L 98.0-107.0 Co2 23.0 mmol/L 22.0-30.0 Creatinine-Serum 1.0 mg/dL 0.7-1.2 FT4 1.34 ng/dL 0.75-1.54 Glucose 98.0 mg/dL 75.0-110.0 HCT 38.6 % 37.0-51.0 HGB 13.0 Gm/dl 12.0-16.0 MCH 30.6 pg 26.0-32.0 MCHC 33.8 g/dL 31.0-36.0 MCV 90.7 Fl 80.0-97.0 MPV 5.2 fL Low 6.0-10.0 PLT 314 K/ul 140-440 Potasium 3.5 mmol/L Low 3.6-5.0 RBC 4.3 M/ul 4.2-6.3 RDW 12.0 % 11.5-14.5 Sodium 140.0 mmil/L 137.0-145.0 TSH 0.28 uIU/ml Low 0.50-6.00 Vitamin D 47.5 ng/mL 30.0-100.0 WBC 7.0 K/ul 4.1-10.9 eGFR 59.5 Lipid Panel 01/20/2013 [facility] [employer] [facility] Chol/HDL Ratio 2.9 ratio Cholesterol 194.0 mg/dL 50.0-199.0 HDL 68.0 mg/dL 29.0-86.0 LDL, Calculated 104.8 mg/dL 20.0-129.0 Triglycerides 106.0 mg/dL 30.0-249.0 vLDL 21.2 ng/dL Laboratory test 01/20/2013 [facility] [facility] Triiodothyronine,Total 86 ng/dL 71-180 75 finding Laboratory test 06/20/2012 [facility] [facility] Culture If Indicated See Note 76 finding Comment Urine Amorph Sediment Small Negative Urine Bacteria Few None Seen Urine Bilirubin - Dipstick Negative Negative Urine Blood Large High Negative Urine Clarity Cloudy Clear Urine Color Yellow Yellow Urine Culture See Note 77 Urine Epithelial Cells Very Few None Seen /lpf Urine Glucose - Dipstick Negative mg/dL Negative Urine Ketone Negative mg/dL Negative Urine Leuk Esterase Large High Negative Urine Nitrite - Dipstick Positive High Negative Urine PH 6.0 Low 6.5-7.5 Urine Protein - Dipstick 30 mg/dL High Negative Urine RBC 10-20 rbc/hpf High 0-7 Urine Screen See Note 78 Urine Specific [place] 1.010 1.010-1.030 Urine Urobilinogen - Dipstick 0.2 E.U./dL 0.2-1.0 Urine WBC TNTC wbc/hpf High 0-7 1 6 mos 2 Updated reference range on new analyzer 3 Updated reference range on new analyzer 4 Updated reference range 06-15-2018 5 Concerning GFR Guidelines for Americans: Normal function or mild renal disease, if clinically at risk: >/=60 mL/min Moderately decreased: 30-59 Severely decreased: 15-29 Renal failure: <15 There is reduced accuracy above 60ml/min/1.73 m squared, but the numeric value may be clinically useful in the near 60 range 6 Concerning GFR Guidelines: Normal function or mild renal disease, if clinically at risk: >/=60 mL/min Moderately decreased: 30-59 Severely decreased: 15-29 Renal failure: <15 There is reduced accuracy above 60ml/min/1.73 m squared, but the numeric value may be clinically useful in the near 60 range Glomerular Filtration Rate (GFR) is estimated based on the CKD-EPI equation, which assumes a steady state for creatinine as recommended by the National Kidney Disease Education Program in conjunction with the National Institutes of Health and the National Kidney Foundation. Clinical conditions in which it may be necessary to measure GFR by using clearance methods include extremes of age and body size, severe malnutrition or obesity, diseases of skeletal muscle, paraplegia or quadriplegia, vegetarian diet, rapidly changing kidney function, and calculation of the dose of potentially toxic drugs that are excreted by the kidneys. 7 Updated Reference Range 8 Clinical Guidelines for recommended serum 25(OH)Vitamin D Deficient at less than 20 ng/mL Insufficient at 20 to <30 ng/mL Sufficient at 30-100 ng/mL Toxicity at greater than 100 ng/mL 9 Per NCEP ATP III Guidelines: Results lower than 40 mg/dL are suggestive of increased risk for coronary artery disease. Results > or=to 60 mg/dL are considered a negative risk factor. 10 Per NCEP ATP III Guidelines: Normal Population <130 Patients with medical conditions: CHD/DM Optimal: <100 Borderline high: 130-159 High: 160-189 Very high: >189 11 prior to office visit in december 27 Updated reference range on new analyzer 13 Updated reference range on new analyzer 14 Concerning GFR Guidelines: Normal function or mild renal disease, if clinically at risk: >/=60 mL/min Moderately decreased: 30-59 Severely decreased: 15-29 Renal failure: <15 Glomerular Filtration Rate (GFR) is estimated based on the MDRD equation, which assumes a steady state for creatinine as recommended by the National Kidney Disease Education Program in conjunction with the National Institutes of Health and the National Kidney Foundation. Clinical conditions in which it may be necessary to measure GFR by using clearance methods include extremes of age and body size, severe malnutrition or obesity, diseases of skeletal muscle, paraplegia or quadriplegia, vegetarian diet, rapidly changing kidney function, and calculation of the dose of potentially toxic drugs that are excreted by the kidneys. 15 Concerning GFR Guidelines for Americans: Normal function or mild renal disease, if clinically at risk: >/=60 mL/min Moderately decreased: 30-59 Severely decreased: 15-29 Renal failure: <15 16 Updated Reference Range 17 Clinical Guidelines for recommended serum 25(OH)Vitamin D Deficient at less than 20 ng/mL Insufficient at 20 to <30 ng/mL Sufficient at 30-100 ng/mL Toxicity at greater than 100 ng/mL 18 Per NCEP ATP III Guidelines: Results lower than 40 mg/dL are suggestive of increased risk for coronary artery disease. Results > or=to 60 mg/dL are considered a negative risk factor. 19 Per NCEP ATP III Guidelines: Normal Population <130 Patients with medical conditions: CHD/DM Optimal: <100 Borderline high: 130-159 High: 160-189 Very high: >189 20 6 mos 21 Clinical Guidelines for recommended serum 25(OH)Vitamin D Deficient at less than 20 ng/mL Insufficient at 20 to <30 ng/mL Sufficient at 30-100 ng/mL Toxicity at greater than 100 ng/mL 22 Updated reference range on new analyzer 23 Updated reference range on new analyzer 24 Concerning GFR Guidelines for Americans: Normal function or mild renal disease, if clinically at risk: >/=60 mL/min Moderately decreased: 30-59 Severely decreased: 15-29 Renal failure: <15 25 Concerning GFR Guidelines: Normal function or mild renal disease, if clinically at risk: >/=60 mL/min Moderately decreased: 30-59 Severely decreased: 15-29 Renal failure: <15 Glomerular Filtration Rate (GFR) is estimated based on the MDRD equation, which assumes a steady state for creatinine as recommended by the National Kidney Disease Education Program in conjunction with the National Institutes of Health and the National Kidney Foundation. Clinical conditions in which it may be necessary to measure GFR by using clearance methods include extremes of age and body size, severe malnutrition or obesity, diseases of skeletal muscle, paraplegia or quadriplegia, vegetarian diet, rapidly changing kidney function, and calculation of the dose of potentially toxic drugs that are excreted by the kidneys. 26 Updated Reference Range 27 Per NCEP ATP III Guidelines: Results lower than 40 mg/dL are suggestive of increased risk for coronary artery disease. Results > or=to 60 mg/dL are considered a negative risk factor. 28 Per NCEP ATP III Guidelines: Normal Population <130 Patients with medical conditions: CHD/DM Optimal: <100 Borderline high: 130-159 High: 160-189 Very high: >189 29 C50.411 30 [employer]/ACS methodology Values obtained with different assay methods or kits cannot be used interchangeably. Results cannot be interpreted as absolute evidence of the presence or absence of malignant disease. Performed at: - [facility] [id number] Clinical Research Specialist: Evonne Marsh MD, Phone: [phone] 31 Note: Persistent reduction for 3 months or more in an eGFR <60 mL/min/1.73 m2 defines CKD. Patients with eGFR values >/=60 mL/min/1.73 m2 may also have CKD if evidence of persistent proteinuria is present. The original MDRD equation for estimated GFR is not valid for patients less than 18 years of age. Additional information may be found at www.kdoqi.org. 32 Fastin hours 33 [facility]. [address] [place] [id number] CYTOLOGY REPORT Source of Specimen(s): Thin Prep Cervical / Endocervical Pap Smear - One Vial Date of Last Menstrual Period: yrs ago Menstrual History: Post-menopausal Other Clinical Conditions: Last Pap Smear: 2011 normal REFLEX TO HPV ASSAY IF RESULTS OF THIS PAP ARE ASCUS Specimen Adequacy SATISFACTORY FOR EVALUATION PRESENCE OF ENDOCERVICAL/TRANSFORMATION ZONE COMPONENT General Categorization NEGATIVE FOR INTRAEPITHELIAL LESION OR MALIGNANCY Interpretation NEGATIVE FOR INTRAEPITHELIAL LESION OR MALIGNANCY Reported: 01/15/2017 13:34 Electronically Signed Out By Corinne Blackburn CT(ASCP) erwin Dockery, MS,SCT(ASCP)([facility]) ERWIN ICD9 Code: Z01.419 QC Reviewed: Y Unless otherwise specified, testing performed by [facility] [address] [place] [id number] 34 3 mo 35 Per NCEP ATP III Guidelines: Results lower than 40 mg/dL are suggestive of increased risk for coronary artery disease. Results > or=to 60 mg/dL are considered a negative risk factor. 36 Per NCEP ATP III Guidelines: Normal Population <130 Patients with medical conditions: CHD/DM Optimal: <100 Borderline high: 130-159 High: 160-189 Very high: >189 37 Updated reference range on new analyzer 38 Updated reference range on new analyzer 39 Concerning GFR Guidelines: Normal function or mild renal disease, if clinically at risk: >/=60 mL/min Moderately decreased: 30-59 Severely decreased: 15-29 Renal failure: <15 Glomerular Filtration Rate (GFR) is estimated based on the MDRD equation, which assumes a steady state for creatinine as recommended by the National Kidney Disease Education Program in conjunction with the National Institutes of Health and the National Kidney Foundation. Clinical conditions in which it may be necessary to measure GFR by using clearance methods include extremes of age and body size, severe malnutrition or obesity, diseases of skeletal muscle, paraplegia or quadriplegia, vegetarian diet, rapidly changing kidney function, and calculation of the dose of potentially toxic drugs that are excreted by the kidneys. 40 Concerning GFR Guidelines for Americans: Normal function or mild renal disease, if clinically at risk: >/=60 mL/min Moderately decreased: 30-59 Severely decreased: 15-29 Renal failure: <15 41 Updated reference range on new analyzer 42 C50.411 43 [employer]/ACS methodology Values obtained with different assay methods or kits cannot be used interchangeably. Results cannot be interpreted as absolute evidence of the presence or absence of malignant disease. Performed at: - [facility] [address] [id number] Clinical Research Specialist: Evonne Marsh MD, Phone: [phone] 44 Note: Persistent reduction for 3 months or more in an eGFR <60 mL/min/1.73 m2 defines CKD. Patients with eGFR values >/=60 mL/min/1.73 m2 may also have CKD if evidence of persistent proteinuria is present. The original MDRD equation for estimated GFR is not valid for patients less than 18 years of age. Additional information may be found at www.kdoqi.org. 45 3 mo 46 Updated reference range on new analyzer 47 Updated reference range on new analyzer 48 Concerning GFR Guidelines: Normal function or mild renal disease, if clinically at risk: >/=60 mL/min Moderately decreased: 30-59 Severely decreased: 15-29 Renal failure: <15 Glomerular Filtration Rate (GFR) is estimated based on the MDRD equation, which assumes a steady state for creatinine as recommended by the National Kidney Disease Education Program in conjunction with the National Institutes of Health and the National Kidney Foundation. Clinical conditions in which it may be necessary to measure GFR by using clearance methods include extremes of age and body size, severe malnutrition or obesity, diseases of skeletal muscle, paraplegia or quadriplegia, vegetarian diet, rapidly changing kidney function, and calculation of the dose of potentially toxic drugs that are excreted by the kidneys. 49 Concerning GFR Guidelines for Americans: Normal function or mild renal disease, if clinically at risk: >/=60 mL/min Moderately decreased: 30-59 Severely decreased: 15-29 Renal failure: <15 50 Updated reference range on new analyzer 51 6 mo 52 Per NCEP ATP III Guidelines: Results lower than 40 mg/dL are suggestive of increased risk for coronary artery disease. Results > or=to 60 mg/dL are considered a negative risk factor. 53 Per NCEP ATP III Guidelines: Normal Population <130 Patients with medical conditions: CHD/DM Optimal: <100 Borderline high: 130-159 High: 160-189 Very high: >189 54 C50.411 55 [employer]/ACS methodology Values obtained with different assay methods or kits cannot be used interchangeably. Results cannot be interpreted as absolute evidence of the presence or absence of malignant disease. Performed at: RN - [facility] [address] [id number] Clinical Research Specialist: Evonne Marsh MD, Phone: [phone] 56 Note: Persistent reduction for 3 months or more in an eGFR <60 mL/min/1.73 m2 defines CKD. Patients with eGFR values >/=60 mL/min/1.73 m2 may also have CKD if evidence of persistent proteinuria is present. The original MDRD equation for estimated GFR is not valid for patients less than 18 years of age. Additional information may be found at www.kdoqi.org. 57 6 mos Fastin hours 6 mos Fastin hours 58 Per NCEP ATP III Guidelines: Results lower than 40 mg/dL are suggestive of increased risk for coronary artery disease. Results > or=to 60 mg/dL are considered a negative risk factor. 59 Per NCEP ATP III Guidelines: Normal Population <130 Patients with medical conditions: CHD/DM Optimal: <100 Borderline high: 130-159 High: 160-189 Very high: >189 60 6 month (when she returns from [place]) 61 Per NCEP ATP III Guidelines: Results lower than 40 mg/dL are suggestive of increased risk for coronary artery disease. Results > or=to 60 mg/dL are considered a negative risk factor. 62 Per NCEP ATP III Guidelines: Normal Population <130 Patients with medical conditions: CHD/DM Optimal: <100 Borderline high: 130-159 High: 160-189 Very high: >189 63 Concerning GFR Guidelines: Normal function or mild renal disease, if clinically at risk: >/=60 mL/min Moderately decreased: 30-59 Severely decreased: 15-29 Renal failure: <15 Glomerular Filtration Rate (GFR) is estimated based on the MDRD equation, which assumes a steady state for creatinine as recommended by the National Kidney Disease Education Program in conjunction with the National Institutes of Health and the National Kidney Foundation. Clinical conditions in which it may be necessary to measure GFR by using clearance methods include extremes of age and body size, severe malnutrition or obesity, diseases of skeletal muscle, paraplegia or quadriplegia, vegetarian diet, rapidly changing kidney function, and calculation of the dose of potentially toxic drugs that are excreted by the kidneys. 64 Concerning GFR Guidelines for Americans: Normal function or mild renal disease, if clinically at risk: >/=60 mL/min Moderately decreased: 30-59 Severely decreased: 15-29 Renal failure: <15 November 66 Per NCEP ATP III Guidelines: Results lower than 40 mg/dL are suggestive of increased risk for coronary artery disease. Results > or=to 60 mg/dL are considered a negative risk factor. 67 Per NCEP ATP III Guidelines: Normal Population <130 Patients with medical conditions: CHD/DM Optimal: <100 Borderline high: 130-159 High: 160-189 Very high: >189 68 Per NCEP ATP III Guidelines: Results lower than 40 mg/dL are suggestive of increased risk for coronary artery disease. Results > or=to 60 mg/dL are considered a negative risk factor. 69 Per NCEP ATP III Guidelines: Normal Population <130 Patients with medical conditions: CHD/DM Optimal: <100 Borderline high: 130-159 High: 160-189 Very high: >189 70 Concerning GFR Guidelines: Normal function or mild renal disease, if clinically at risk: >/=60 mL/min Moderately decreased: 30-59 Severely decreased: 15-29 Renal failure: <15 Glomerular Filtration Rate (GFR) is estimated based on the MDRD equation, which assumes a steady state for creatinine as recommended by the National Kidney Disease Education Program in conjunction with the National Institutes of Health and the National Kidney Foundation. Clinical conditions in which it may be necessary to measure GFR by using clearance methods include extremes of age and body size, severe malnutrition or obesity, diseases of skeletal muscle, paraplegia or quadriplegia, vegetarian diet, rapidly changing kidney function, and calculation of the dose of potentially toxic drugs that are excreted by the kidneys. 71 Concerning GFR Guidelines for Americans: Normal function or mild renal disease, if clinically at risk: >/=60 mL/min Moderately decreased: 30-59 Severely decreased: 15-29 Renal failure: <15 72 OPERATION/PROCEDURE Colonoscopy DIAGNOSIS: PART 1: "TRANSVERSE COLON AND SIGMOID COLON POLYPS, POLYPECTOMY": HYPERPLASTIC POLYPS. PART 2: "TRANSVERSE COLON POLYP, #2, POLYPECTOMY": TUBULAR ADENOMA. /clf T: 2013 1:12 GROSS Part 1. Received in formalin labeled, "TRANSVERSE, SIGMOID COLON POLYPS" are four pieces of kothari, soft tissue measuring up to 0.5 cm. in greatest dimension. Submitted in toto in one block. Part 2. Received in formalin labeled, "TRANSVERSE COLON POLYP #2" are five pieces of kothari, soft tissue measuring up to 0.3 cm. in greatest dimension. Submitted in toto in block #2. /clf MICROSCOPIC Part 1: Sections show colonic mucosa lined by an increased number of goblet cells. The glands have a serrated, saw tooth appearance. The nuclei are bland, and basal. Part 2: Sections show colonic mucosa with tubular glands lined by columnar cells with elongated and hyperchromatic nuclei. PRE OPERATIVE DIAGNOSIS History of polyps REVIEW CODE CODE: I ----- Signed Electronically signed MARII JUARES MD 12/29/13 1746 ----- 73 COLONY COUNT ! 20,000-30,000 CFU/ml Organism 1 ! MIXED URETHRAL DENYS 74 Performed at: [facility] [place] [employer] [id number] Clinical Research Specialist: Evonne Marsh MD, Phone: [phone] 75 Performed at: [facility] [place] [employer] [id number] Clinical Research Specialist: Evonne Marsh MD, Phone: [phone] CULTURE TO FOLLOW 77 COLONY COUNT ! >100,000 CFU/ml Organism 1 ! ESCHERICHIA COLI QUANTITY ! MANY Organism 2 ! URETHRAL DENYS ESCHERICHIA COLI Target Route Dose M.I.C. RX AB COST ------ ----- -------- ------ -- ------ NITROFURANTOIN <=16 S TRIMETHOPRIM/SULFAMETHOXAZOLE <=20 S AMPICILLIN 8 S CEFAZOLIN <=4 S AMPICILLIN/SULBACTAM 4 S CIPROFLOXACIN <=0.25 S PIPERACILLIN/TAZOBACTAM <=4 S CEFTAZIDIME <=1 S CEFTRIAXONE <=1 S CEFEPIME <=1 S LEVOFLOXACIN <=0.12 S IMIPENEM <=0.25 S GENTAMICIN <=1 S TOBRAMYCIN <=1 S 78 06/20/12 [facility] Deleted by Reflex Group [facility] [place] Procedures Date Code Description Status 03/05/2016 86985 Bone Density Study (Dexa) Axial Skeleton Completed (Hips,Pelvis,Spine) 03/05/2016 [id number] Bone Mineral Density Test Completed 12/30/2015 [id number] Mammogram Completed 11/22/2014 88399 Electrocardiogram Complete Completed 11/22/2014 [id number] Remove Impacted Cerumen Requiring Instrumentation Completed 12/28/2013 [id number] Colonoscopy Completed Encounters Type Date Location Provider Dx Diagnosis Office Visit 01/13/2018 [facility] Heavenly Martin MD Z00.00 Encntr for general 10:30a adult medical exam w/o abnormal findings L81.9 Disorder of pigmentation, unspecified J30.9 Allergic rhinitis, unspecified E55.9 Vitamin D deficiency, unspecified I10 Essential (primary) hypertension E03.9 Hypothyroidism, unspecified E78.2 Mixed hyperlipidemia C44.41 Basal cell carcinoma of skin of scalp and neck C50.919 Malignant neoplasm of unsp site of unspecified female breast E87.6 Hypokalemia Z13.31 Encounter for screening for depression F17.211 Nicotine dependence, cigarettes, in remission N18.3 Chronic kidney disease, stage 3 (moderate) Z68.25 Body mass index (BMI) 25.0-25.9, adult Office Visit 07/16/2017 2:30p [facility] Heavenly Martin MD N18.3 Chronic kidney disease, stage 3 (moderate) C50.919 Malignant neoplasm of unsp site of unspecified female breast L81.9 Disorder of pigmentation, unspecified J30.9 Allergic rhinitis, unspecified E55.9 Vitamin D deficiency, unspecified I10 Essential (primary) hypertension E03.9 Hypothyroidism, unspecified E78.2 Mixed hyperlipidemia C44.41 Basal cell carcinoma of skin of scalp and neck E87.6 Hypokalemia Z13.89 Encounter for screening for other disorder Office Visit 01/12/2017 8:15a [facility] Heavenly Martin MD Z01.419 Encntr for synthetic soil blocks pulper exam (general) (routine) w/o abn findings J30.9 Allergic rhinitis, unspecified E55.9 Vitamin D deficiency, unspecified I10 Essential (primary) hypertension E78.2 Mixed hyperlipidemia C44.41 Basal cell carcinoma of skin of scalp and neck C50.919 Malignant neoplasm of unsp site of unspecified female breast E87.6 Hypokalemia Z68.25 Body mass index (BMI) 25.0-25.9, adult Z12.4 Encounter for screening for malignant neoplasm of cervix Office Visit 09/24/2016 9:30a [facility] Heavenly Martin MD L81.9 Disorder of pigmentation, unspecified J30.9 Allergic rhinitis, unspecified E55.9 Vitamin D deficiency, unspecified I10 Essential (primary) hypertension E03.9 Hypothyroidism, unspecified E78.2 Mixed hyperlipidemia C44.41 Basal cell carcinoma of skin of scalp and neck C50.919 Malignant neoplasm of unsp site of unspecified female breast E87.6 Hypokalemia Office Visit 06/15/2016 10:00a [facility] Heavenly Martin MD C50.919 Malignant neoplasm of unsp site of unspecified female breast J30.9 Allergic rhinitis, unspecified E55.9 Vitamin D deficiency, unspecified I10 Essential (primary) hypertension E03.9 Hypothyroidism, unspecified E78.2 Mixed hyperlipidemia C44.41 Basal cell carcinoma of skin of scalp and neck F17.211 Nicotine dependence, cigarettes, in remission Z11.59 Encounter for screening for other viral diseases E87.6 Hypokalemia Z87.891 Personal history of nicotine dependence Office Visit 12/30/2015 2:30p [facility] Heavenly Martin MD Z00.00 Encntr for general adult medical exam w/o abnormal findings R92.8 Oth abn and inconclusive findings on dx imaging of breast C44.41 Basal cell carcinoma of skin of scalp and neck E78.2 Mixed hyperlipidemia E03.9 Hypothyroidism, unspecified I10 Essential (primary) hypertension E55.9 Vitamin D deficiency, unspecified J30.9 Allergic rhinitis, unspecified L81.9 Disorder of pigmentation, unspecified Office Visit 05/30/2015 1:30p Heaven[facility] Weaver MD E78.2 Mixed hyperlipidemia E03.9 Hypothyroidism, unspecified I10 Essential (primary) hypertension L81.9 Disorder of pigmentation, unspecified E55.9 Vitamin D deficiency, unspecified J30.9 Allergic rhinitis, unspecified C44.41 Basal cell carcinoma of skin of scalp and neck Office Visit 06/07/2014 9:00a [facility] Heavenly Martin MD 709.00 Dyschromia Unspec 477.9 Rhinitis Allergic Cause Unspec 401.1 Hypertension Benign 272.2 Hyperlipidemia Mixed 195.0 Malignant Neoplasm Head Face & Neck Other Ill Defined 268.9 Vitamin D Deficiency Unspec 380.4 Impacted Cerumen Plan of Treatment Future Appointment(s):12/13/2018 7:50 am - Schedule, Laboratory at [facility]2018 9:30 am - Schedule, [facility] [facility]12[facility]19/2018 9:15 am - Heavenly Martin MD at [facility]07/14/2018 - Heavenly Martin [id number] Malignant neoplasm of female breastComments:She follows up with Dr. Mccarthy. I will give her an order for mammogram if needed. If she needs referral to Dr. Gabriel the patient will let us know.Follow up:Follow up for Medicare Wellness visit in December with fasting labs prior.L81.1 Disorder of skin pigmentationComments:She will continue using melquin every day for skin pigmentation.J30.2 Allergic rhinitisComments:-allergies - Continue taking Flonase for her allergies.E55.9 Vitamin D deficiencyNew Labs:Vitamin B12, Ordered: 07/14/18Comments:Continue supplement. Recommended to stay on the Vitamin D supplement when she is not exposed to thesun.I10 Benign essential hypertensionComments:At goal on current medication - keep up the good work. Recommend regular exercise, healthy diet and minimize salt intake to maximize control of blood pressure.E03.9 HypothyroidismNew Medication:Levothyroxine Sodium 75 mcg - 1 by mouth every dayNew Labs:TSH, Scheduled: 08/25/18TSH, Ordered: 07/14/18Comments:TSH was 0.22 which is over treated. We will decrease the dose of thyroid medication from 88 to 75, provided with 90-day supply. We will check labs in 6 weeks.E78.2 Mixed hyperlipidemiaNew Labs:Lipid Treatment, Ordered: 07/14/18Comments:Stable, continue current medication. Check lipid panel in 6 months.C44.41 Basal cell carcinoma of neckComments:Follows up with Dr. Gardiner.E87.6 HypokalemiaComments: Low potassium level - We increased her dose to TID daily.N18.3 Chronic kidney disease, stage 3 (moderate)New Labs:Basic (BMP), Ordered: 07/14/18Comments: Kidney function is mildly worse. Advised to drink plenty of fluid. Advised to avoid nsaids like ibuprofen and aleve.M25.569 Pain in unspecified kneeComments: She was advised to take Tylenol for the pain. If this does not relieve her symptoms, we would try another medication. If the pain is worsening, we will order an xray to rule out for any abnormalities.Z13.31 Encounter for screening for depressionComments:screening for depression is negative - PHQ2=0Z86.010 Personal history of colonic polypsComments:Patient is due for repeat colonoscopy in December.Referral:Love Weaver, FwnicjritfmdyyupE28.1 Menopausal and female climacteric statesNew Xrays:Bone Density Study (Dexa), Scheduled: 07/18/18Comments:We will order for a DEXA scan.D51.9 Vitamin B12 deficiency anemia, unspecifiedComments:continue supplement. She was recommended decrease B12 500 mg to every other day.Z68.26 Body mass index (BMI) 26.0-26.9, adultComments:BMI is the ratio or height to weight. explained that goal BMI for people age 65 and older is 23- 30. You are in your normal body weight range - KEEP UP THE GOOD WORK!
--- NOTE | 2018-07-24 12:30 | UC ---
Throat Pain/Nasal Rico HPI - HPI Summary HPI Summary: Head congestion, runny nose and post-nasal drainage for the past 3 days and sore throat from the post-nasal drainage.. Denies fever. No cough other than from post-nasal drainage. - History of Current Complaint Stated Complaint: SORE THROAT Time Seen by Provider: 07/24/18 12:30 Hx Obtained From: Patient Hx Last Menstrual Period: n/a Onset/Duration: Gradual Onset Severity: Mild Cough: None Associated Signs & Symptoms: Positive: Negative - Allergies/Home Medications Allergies/Adverse Reactions: Allergies Allergy/AdvReac Type Severity Reaction Status Date / Time No Known Allergies Allergy Verified 07/24/18 12:29 Home Medications: Home Medications Anastrozole [Arimidex] 1 mg PO BID WITH MEALS 07/24/18 [History Confirmed ] PMH/Surg Hx/FS Hx/Imm Hx Previously Healthy: Yes Endocrine History: Thyroid Disease, Dyslipidemia Cardiovascular History: Hypertension Cancer History: Breast Cancer - Surgical History Surgical History: Yes Surgery Procedure, Year, and Place: PARTIAL THYROIDECTOMY, HERNIA REPAIR. T&A, right breast bx, lumpectomy x2. LEFT BREAST BX JUNE 2017- BENIGN - Family History Known Family History: Positive: Cardiac Disease, Hypertension - Social History Alcohol Use: Weekly Alcohol Amount: ONE GLASS PER WEEK Substance Use Type: None Smoking Status (MU): Former Smoker Type: Cigarettes Amount Used/How Often: 1/2 PPD Length of Time of Smoking/Using Tobacco: 33 Years Have You Smoked in the Last Year: No When Did the Patient Quit Smoking/Using Tobacco: 2008 - Immunization History Most Recent Influenza Vaccination: yes 11/2016 Review of Systems All Other Systems Reviewed And Are Negative: Yes ENT: Positive: Nasal Discharge, Other - Post nasal drainage Is Patient Immunocompromised?: No Physical Exam Triage Information Reviewed: Yes Appearance: Well-Appearing, No Pain Distress, Well-Nourished Vital Signs Reviewed: Yes Eyes: Positive: Conjunctiva Clear ENT: Positive: Hearing grossly normal, Pharynx normal, Nasal congestion, Nasal drainage, TMs normal, Uvula midline Neck: Positive: Supple, Nontender, No Lymphadenopathy Respiratory: Positive: Lungs clear, Normal breath sounds, No respiratory distress, No accessory muscle use Cardiovascular: Positive: RRR, No Murmur, Pulses Normal, Brisk Capillary Refill Musculoskeletal Exam: Normal Neurological Exam: Normal Psychological Exam: Normal Skin Exam: Normal Throat Pain/Nasal Course/Dx - Course Course Of Treatment: Pt comfortable here. I believe this is a viral URI and advised pt at this time she does not need an antibiotic but to talk with the pharmacist and ask what OTC med she can take with her hypertension medication that would help with the post-nasal drainage. - Differential Dx/Diagnosis Provider Diagnosis: URI (upper respiratory infection) Discharge - Sign-Out/Discharge Documenting (check all that apply): Patient Departure All imaging exams completed and their final reports reviewed: No Studies - Discharge Plan Condition: Fair Disposition: HOME Patient Education Materials: Upper Respiratory Infection (DC) Referrals: Heavenly Martin MD [Primary Care Provider] - Additional Instructions: Increase fluids, ask the Pharmacist what over the counter medicine you can take to dry up your post-nasal drainage. Follow up with Dr. Martin in 4-5 days if no improvement. - Billing Disposition and Condition Condition: FAIR Disposition: Home - Attestation Statements Provider Attestation: Per institutional requirements, I have reviewed the chart, however, I was not consulted specifically or made aware of this patient by the midlevel provider. I did not personally evaluate, interact with , or disposition this patient.
[2018-07-24 12:34] VITALS: BP 139/63
== END 2018-07-24 12:51 | disposition home or self-care (01) ==
LOC: UCCORT 11:35
DX: J06.9 Acute upper respiratory infection, unspecified (principal); Z87.891 Personal history of nicotine dependence
CPT/HCPCS: 99211; G0463